=== PATIENT | female | born 2000 | race Asian ===

== ENCOUNTER 2023-11-15 15:58 | Emergency (ER) | payer OTHER ==
[2023-11-15 16:10] VITALS: RESP 18; BMI 28.3
[2023-11-15 16:12] VITALS: BP 104/72; PULSE 86; TEMP 98.7
[2023-11-15] MEDS ORDERED: IBUPROFEN 600 MG TABLET (FP) PO ONE ×2 (17:58→18:15)
[2023-11-15] MEDS ORDERED: LIDOCAINE HCL 2% JELLY 10 ML CARTRIDGE UR ONE (17:59)
[2023-11-15] MEDS ORDERED: LIDOCAINE HCL 2% JELLY 6 ML TP ONE (18:01)
[2023-11-15 18:11] LABS: EPI CELLS 30 /uL (0-25.1); HYALINE CASTS 2 /uL (0-3.1); PH,URINE 6.5 (5.0-8.0); URINE APPEARANCE CLOUDY; URINE BILIRUBIN NEGATIVE (NEGATIVE); URINE COLOR DK YELLOW; URINE GLUCOSE (UA) NEGATIVE (NEGATIVE); URINE KETONE NEGATIVE (NEGATIVE); URINE LEUK ESTERASE 2+ (NEGATIVE); URINE NITRITE POSITIVE (NEGATIVE); URINE PROTEIN TRACE (NEGATIVE); URINE WBC 1164 /uL (0-25.8)
[2023-11-15 18:12] LABS: HCG,QUALITATIVE URINE Negative
[2023-11-15 18:36] LABS: URINE RBC 43.2 /uL (0-23.9)
[2023-11-15 18:37] LABS: URINE BACTERIA 9987.5 /uL (0-1359)
== END 2023-11-15 18:36 | disposition home or self-care (01) ==
LOC: JERFT 15:58
DX: R10.2 Pelvic and perineal pain (principal); S31.41XA Laceration without foreign body of vagina and vulva, initial encounter; N30.00 Acute cystitis without hematuria; X58.XXXA Exposure to other specified factors, initial encounter
CPT/HCPCS: 81003; 84703; 99283-25